=== PATIENT | male | born 1965 | race African-American/Black ===

== ENCOUNTER 2019-05-06 23:03 | Emergency (ER) | payer OTHER ==
[2019-05-06 23:33] VITALS: BP 131/77; PULSE 110; TEMP 99.1; BMI 24.4
--- NOTE | 2019-05-07 01:37 | PDOC ---
*Physical Exam - Vital Signs Last Vital Signs Temp Pulse Resp BP Pulse Ox 99.1 F 110 H 20 131/77 98 05/06/19 23:03 05/06/19 23:03 05/06/19 23:03 05/06/19 23:03 05/06/19 23:03 Medical Decision Making - Medical Decision Making 05/07/19 01:37 Patient seen by the advanced practice provider under my direct supervision. Ancillary testing reviewed as necessary. I agree with plan as outlined by the advanced practice provider. Discharge - Discharge Information Problems reviewed: Yes Clinical Impression/Diagnosis: Right anterior shoulder pain Condition: Fair Disposition: HOME - Follow up/Referral Referrals: Tyshawn Emery MD, MD [Primary Care Provider] - - Patient Discharge Instructions Additional Instructions: Continue evaluation with the orthopedist who is currently treating you. Your emergency department visit is incomplete until you follow-up with your regular doctor. Take Tylenol 2-500 mg tablets every 6 hours as needed for pain. Take Motrin 3-200 mg tablets every 6 hours as needed for pain. These medications do not require a prescription as they are [id number]. Return to the emergency department for blurry vision, dizziness, vomiting or any new or worsening symptoms. Thank you very much for choosing us to provide your emergent health care needs. - Post Discharge Activity Work/Back to School Note: Back to Work
[2019-05-07] MEDS ORDERED: KETOROLAC TROMETHAMINE 60 MG/2 ML VIAL IM ONE (01:44)
--- NOTE | 2019-05-07 01:49 | PDOC ---
History of Present Illness - General Chief Complaint: Pain, Acute Stated Complaint: RIGHT ARM PAIN Time Seen by Provider: 05/07/19 01:23 History Source: Patient Exam Limitations: No Limitations - History of Present Illness Initial Comments: 05/07/19 01:45 HISTORY OF PRESENT ILLNESS: 53-year-old male denies medical history presents emergency department for reevaluation of right shoulder pain sustained status post fall. Patient reports he fell approximately 1 month ago landed on his right upper arm. Patient has had negative x-rays x2 since that time. Patient has been evaluated by an orthopedic surgeon give the patient a cortisone injection and prescribed physical therapy. Patient has not been going to physical therapy due to the pain he has been experiencing. Patient states orthopedist is recommended an MRI and is trying to schedule an outpatient MRI for him. Patient is left-hand dominant. He denies any numbness or tingling. No recent travel or sick contacts. PAST MEDICAL HISTORY: Denies past medical history SURGICAL HISTORY: Denies ALLERGIES: No known drug allergies REVIEW OF SYSTEMS General/Constitutional: Denies fever or chills. Denies weakness, weight change. HEENT: Denies change in vision. Denies ear pain or discharge. Denies sore throat. Cardiovascular: Denies chest pain or shortness of breath. Respiratory: Denies cough, wheezing, or hemoptysis. Gastrointestinal: Denies nausea, vomiting, diarrhea or constipation. Denies rectal bleeding. Genitourinary: Denies dysuria, frequency, or change in urination. Musculoskeletal: See HPI Skin and breasts: Denies rash or easy bruising. Neurologic: Denies headache, vertigo, loss of consciousness, or loss of sensation. Psychiatric: Denies depression or anxiety. Endocrine: Denies increased thirst. Denies abnormal weight change. Hematologic/Lymphatic: Denies anemia, easy bleeding, or history of blood clots. Allergic/Immunologic: Denies hives or skin allergy. Denies latex allergy. PHYSICAL EXAM General Appearance: Well-appearing, appropriately dressed. No apparent distress , no intoxication. Neck: Supple. Trachea midline. No tenderness, rigidity, carotid bruit, stridor , lymphadenopathy, or thyromegaly. Respiratory/Chest: Lungs CTAB. No shortness of breath, chest tenderness, respiratory distress, accessory muscle use. No crackles, rales, rhonchi, stridor , wheezing, dullness Cardiovascular: RRR. S1, S2. No JVD, murmur, bradycardia, tachycardia. Vascular Pulses: Dorsalis-Pedis (R): 2+, Dorsalis-Pedis (L): 2+ Musculoskeletal/Extremities: Normal inspection. Normal capillary refill. Pelvis Stable. No CVA tenderness. No tenderness to extremities, pedal edema, swelling, erythema or deformity. Facilities Maintenance Supervisor strength 5/5 bilaterally. Decreased range of motion with abduction and circumduction of the right shoulder. Neurologic: union carpenter II-XII intact. Fully oriented, alert. Appropriate mood/affect. Motor strength 5/5. No appreciable EOM palsy, facial droop or sensory deficit. Past History - Past Medical History Allergies/Adverse Reactions: Allergies Allergy/AdvReac Type Severity Reaction Status Date / Time No Known Allergies Allergy Verified 05/06/19 23:26 - Psycho Social/Smoking Cessation Hx Smoking History: Never smoked Hx Alcohol Use: No *Physical Exam - Vital Signs Last Vital Signs Temp Pulse Resp BP Pulse Ox 99.1 F 110 H 20 131/77 98 05/06/19 23:03 05/06/19 23:03 05/06/19 23:03 05/06/19 23:03 05/06/19 23:03 Medical Decision Making - Medical Decision Making 05/07/19 01:47 A/P: 53-year-old male with continued right shoulder pain status post fall 1 month ago As patient is already had 2- x-rays performed I will defer imaging at this time. Patient already has a prescription for Percocet and is received a cortisone injection within the past 7 days. Toradol 60 mg IM now Discharge home to follow-up with orthopedist who is currently treating this patient. I discussed the physical exam findings, ancillary test results and final diagnoses with the patient. I answered all of the patient's questions. The patient was satisfied with the care received and felt comfortable with the discharge plan and treatment plan. The patient will call their primary care physician within 24 hours to arrange follow-up and will return to the Emergency Department with any new, persistent or worsening symptoms. Discharge - Discharge Information Problems reviewed: Yes Clinical Impression/Diagnosis: Right anterior shoulder pain Condition: Fair Disposition: HOME - Admission No - Follow up/Referral Referrals: Tyshawn Emery MD, [Primary Care Provider] - - Patient Discharge Instructions Additional Instructions: Continue evaluation with the orthopedist who is currently treating you. Your emergency department visit is incomplete until you follow-up with your regular doctor. Take Tylenol 2-500 mg tablets every 6 hours as needed for pain. Take Motrin 3-200 mg tablets every 6 hours as needed for pain. These medications do not require a prescription as they are [id number]. Return to the emergency department for blurry vision, dizziness, vomiting or any new or worsening symptoms. Thank you very much for choosing us to provide your emergent health care needs. - Post Discharge Activity Work/Back to School Note: Back to Work
[2019-05-07] MEDS ORDERED: KETOROLAC TROMETHAMINE 60 MG/2 ML VIAL ONE (01:59)
== END 2019-05-07 02:10 | disposition home or self-care (01) ==
LOC: JER 23:03
PROC: 3E0233Z Introduction of Anti-inflammatory into Muscle, Percutaneous Approach (ICD-10-PCS; principal; 2019-05-06)
DX: M25.511 Pain in right shoulder (principal); W19.XXXD Unspecified fall, subsequent encounter
CPT/HCPCS: 99282-25

== ENCOUNTER 2019-05-29 06:08 | Day surgery (SDC) | payer OTHER ==
[2019-05-27 17:02] VITALS: BMI 21.6
[2019-05-29] MEDS ORDERED: ROPIVACAINE HCL 0.5% 30ML VIAL ONE (07:20)
[2019-05-29] MEDS ORDERED: DEXAMETHASONE SOD PHOSPHATE/PF 10 MG/ML SDV ONE (07:21)
[2019-05-29] MEDS ORDERED: MIDAZOLAM HCL 2 MG/2 ML SINGLE DOSE VIAL ONE ×2 (07:23)
[2019-05-29] MEDS ORDERED: PROPOFOL 20 ML ONE ×3 (07:41)
[2019-05-29] MEDS ORDERED: KETAMINE HCL 200 MG/20 ML VIAL ONE (07:41)
[2019-05-29] MEDS ORDERED: ceFAZolin SODIUM 1 GM VIAL ONE (07:47)
[2019-05-29] MEDS ORDERED: SODIUM CHLORIDE 0.9% P/F 10 ML VIAL IJ ONE (07:47)
--- NOTE | 2019-05-29 07:53 | HP ---
[facility] - Chief Complaint Chief Complaint: right shoulder pain - Past Medical History Allergies/Adverse Reactions: Allergies Allergy/AdvReac Type Severity Reaction Status Date / Time No Known Allergies Allergy Verified 05/29/19 06:38 - Current Medications Current Medications: Home Medications Medication Instructions Recorded Acarbose [Precose -] 50 mg PO TID 05/29/19 Amlodipine Besylate 10 mg PO DAILY 05/29/19 Aspirin [ASA -] 81 mg PO DAILY 05/29/19 Chlorthalidone 25 tab PO DAILY 05/29/19 Empagliflozin [Jardiance] 25 mg PO DAILY 05/29/19 Enalapril Maleate [Vasotec] 20 mg PO DAILY 05/29/19 Metformin HCl [Glucophage] 1,000 mg PO BID 05/29/19 Rosuvastatin [Crestor -] 20 mg PO HS 05/29/19 Satellite Physical Exam - Physical Examination Vital Signs: Vital Signs Period Temp Pulse Resp BP Sys/Acosta Pulse Ox Last 24 Hr 99.1 F 116 16 113/83 98 General Appearance: Well Nourished, Well Developed, Alert & Oriented x3 ENT: Clear Lung: Normal air movement Extremities: Other (right shoulder- + ttp ,decr rom, + neer, + muro, + empty can, nvi, MRI + rct) Neurological: Intact, Alert, Oriented Satellite Impression/Plan - Impression/Plan Impression: right shoulder rct Operative Procedure: right shoulder arthroscopy with MILAN LANGFORD Date to be Performed: 05/29/19
[2019-05-29] MEDS ORDERED: ceFAZolin SODIUM 1 GM VIAL IVPB ONE (08:06)
[2019-05-29] MEDS ORDERED: GLYCOPYRROLATE 0.2 MG/1 ML VIAL ONE (08:13)
[2019-05-29] MEDS ORDERED: LABETALOL HCL 5 MG/1 ML (100MG/20 ML VIAL) ONE (08:49)
--- NOTE | 2019-05-29 09:26 | OP ---
Operative Note - Note: Operative Date: 05/29/19 ([facility]) Pre-Operative Diagnosis: right shoulder rct Operation: right shoulder arthroscopy with RCR, SAD Post-Operative Diagnosis: Same as Pre-op Surgeon: Bryson Kay [employer] Eligibility Assistant: Scar Blunt Anesthesiologist/MONITORING COORDINATOR: Anil Gilbert Anesthesia: General, Local Specimens Removed: shavings Estimated Blood Loss (mls): 10
[2019-05-29] MEDS ORDERED: oxyCODONE HCL 5 MG TABLET PO PRN (10:11)
[2019-05-29] MEDS ORDERED: ONDANSETRON 4 MG/2 ML VIAL IVPUSH PRN (10:11)
[2019-05-29] MEDS ORDERED: LACTATED RINGERS SOLUTION 1,000 ML IV SCH (10:15)
[2019-05-29 11:15] VITALS: TEMP 98.2
[2019-05-29 13:00] VITALS: BP 115/65; PULSE 112
--- NOTE | 2019-05-29 13:14 | OP ---
DATE OF OPERATION: 05/29/2019 PREOPERATIVE DIAGNOSIS: Right rotator cuff tear. POSTOPERATIVE DIAGNOSIS: Right rotator cuff tear. PROCEDURE: Arthroscopy, right shoulder, with extensive subacromial debridement of scar tissue and synovitis, subacromial decompression and arthroscopic rotator cuff repair. SURGICAL ATTENDING: Bryson Kay MD STATE ARCHIVIST: MATTHEW Chase ANESTHESIA: Regional and general. CLOSURE: A SpeedBridge for rotator cuff, 3-0 nylon for skin. ESTIMATED BLOOD LOSS: Negligible. COMPLICATIONS: None. CONDITION: To recovery in stable condition. DESCRIPTION OF OPERATIVE PROCEDURE: Patient taken to the operating room on May 29, 2019. General anesthesia and regional anesthesia were administered by the anesthesiologist. IV Kefzol administered prophylactically prior to the case. Patient was placed in the beach-chair position with all prominences well padded. Right shoulder area was prepped and draped in the usual sterile fashion. First a gentle manipulation under anesthesia was performed. Patient was quite tight, but after gentle manipulation range of motion was completely restored to the contralateral side's range of motion. First a diagnostic arthroscopy of the glenohumeral joint was performed. The posterior portal was made 2 fingerbreadths below the acromion first with a 15 blade followed by a blunt trocar. The anterior portal was made in the anterior triangle using a spinal needle followed by a 15 blade and blunt trocar. Circumferential exam of the glenohumeral joint revealed the following: Intact glenoid and humeral head articular cartilage, intact labrum circumferentially, no loose bodies in the axillary pouch. The biceps tendon was slightly frayed but was intact to its insertion. The subscapularis tendon was also slightly frayed but intact to its insertion. Looking superiorly the supraspinatus was found to be torn off of the greater tuberosity. Some of its leading edge was debrided using the shaver. The trocars were removed from the shoulder joint. The posterior trocar was redirected in the subacromial space. An accessory lateral portal was made with a 15 blade followed by a blunt trocar. An extensive amount of subacromial synovitis and bursitis was encountered. This was debrided using the ArthroCare device and a shaver. There was a large subacromial spur. An acromioplasty was then performed using the acromionizer bur. The coracoacromial ligament was identified and detached off the anterior acromion. It was visualized to drop inferiorly and was further debrided. Looking inferiorly the humeral head was encased with scar tissue and fibrous tissue. This was debrided off the rotator cuff using a shaver and the ArthroCare device. This exposed a crescent-shaped tear of the rotator cuff at the level of the greater tuberosity and the supraspinatus tendon. The bed was debrided of all fibrous tissue and primitive healing. The bone in this region was slightly burred to allow a bleeding flat surface for reimplantation. A SpeedBridge was used to fixate the repair. Two medial anchors with preloaded Fiber SutureTape were malleted in place, 1 anteriorly, 1 posteriorly. The 4 limbs of sutures were passed individually using the Atrenta suture passer from anterior to posterior, docking them in the anterior portal. One anterior and 1 posterior limb were then fixated through a lateral row anchor posteriorly and 1 anterior and 1 posterior limb were fixated through a lateral row anchor more anteriorly, achieving excellent fixation of the rotator cuff with an excellent wide area of apposition of the tendon to the greater tuberosity. Sutures were cut flush with the bone. Postfixation probing revealed excellent fixation. Range of motion of the shoulder revealed excellent clearance in the subacromial space with excellent repair. Fluid was drained. The trocars were removed. The portals were closed using 3-0 nylon. A sterile pressure dressing was placed over the shoulder followed by a shoulder immobilizer. Patient awakened from anesthesia and transferred to recovery in stable condition. No complication. Estimated blood loss negligible. Adi [id number]
== END 2019-05-29 12:20 | disposition home or self-care (01) ==
LOC: JASU-SURG 06:08
PROVIDERS: ATTEND Orthopaedic Surgery
PROC: 0LQ14ZZ Repair Right Shoulder Tendon, Percutaneous Endoscopic Approach (ICD-10-PCS; 2019-05-29)
PROC: 0RBJ4ZZ Excision of Right Shoulder Joint, Percutaneous Endoscopic Approach (ICD-10-PCS; principal; 2019-05-29 08:00)
PROC: 0RNJ4ZZ Release Right Shoulder Joint, Percutaneous Endoscopic Approach (ICD-10-PCS; 2019-05-29 08:00)
DX: M75.101 Unspecified rotator cuff tear or rupture of right shoulder, not specified as traumatic (principal); M65.811 Other synovitis and tenosynovitis, right shoulder; I10 Essential (primary) hypertension; E11.9 Type 2 diabetes mellitus without complications
CPT/HCPCS: 82962; 94760

== ENCOUNTER 2023-05-14 06:28 | Emergency (ER) | payer OTHER ==
[2023-05-14 06:31] VITALS: BMI 24.4
[2023-05-14] MEDS ORDERED: BENZONATATE 200 MG CAPSULE PO ONE (07:31)
[2023-05-14] MEDS ORDERED: DEXAMETHASONE 4 MG TABLET (FP) PO ONE (08:15)
[2023-05-14 08:44] VITALS: TEMP 102.3
[2023-05-14] MEDS ORDERED: ACETAMINOPHEN 500 MG TABLET (FP) PO ONE (08:45)
[2023-05-14] MEDS ORDERED: ACETAMINOPHEN 500 MG TABLET (FP) ONE (08:54)
[2023-05-14] MEDS ORDERED: DEXAMETHASONE SOD PHOSPHATE 10 MG/1 ML VIAL ONE (08:54)
[2023-05-14 10:06] VITALS: PULSE 109; RESP 20
[2023-05-14 10:27] VITALS: BP 114/68
== END 2023-05-14 10:27 | disposition home or self-care (01) ==
LOC: JER 06:28
DX: R05.9 Cough, unspecified (principal); M79.10 Myalgia, unspecified site; R68.83 Chills (without fever); R00.0 Tachycardia, unspecified; Z20.822 Contact with and (suspected) exposure to COVID-19
CPT/HCPCS: 0241U-QW; 71045-TC-FY; 99284-25

== ENCOUNTER 2023-05-21 20:29 | Emergency (ER) | payer OTHER ==
[2023-05-21 20:34] VITALS: BP 127/72; PULSE 95; RESP 18; TEMP 98.1; BMI 24.4
[2023-05-21] MEDS ORDERED: predniSONE 20 MG TABLET (UD) PO ONE (20:48)
[2023-05-21] MEDS ORDERED: predniSONE 20 MG TABLET (UD) ONE (20:53)
[2023-05-21] MEDS ORDERED: IBUPROFEN 600 MG TABLET (FP) PO ONE (22:03)
== END 2023-05-21 22:13 | disposition home or self-care (01) ==
LOC: JERFT 20:29
DX: R05.9 Cough, unspecified (principal)
CPT/HCPCS: 99283-25